=== PATIENT | male | born 1985 | race Caucasian/White ===

== ENCOUNTER → 2017-11-18 | Day surgery (SDC) | payer OTHER ==
[~2017-11-18] MED LIST: ADDERALL 10 MG10 MG PO; ALEVE220 MG PO; OXYCODONE-APAP1 EAC4 PO; PERCOCET PO; TRAMADOL 50 MG50 MG PO; [UNRECOGNIZED DRUG - REMARK]
--- NOTE | 2017-11-24 10:50 | OP ---
[address] [address] OPERATIVE REPORT Name: NEL ROCHA Room: [facility]#: [id number] Admission: 11/18/17 Attend Phys: Jayy Glover II Discharge: Date of : 81 Report #: [id number] THIS REPORT FOR: //name// CC: Jorge Glover DATE OF SERVICE: 11/18/2017 PREOPERATIVE DIAGNOSIS: Right shoulder SLAP tear. POSTOPERATIVE DIAGNOSES: 1. Right shoulder SLAP tear. 2. Subacromial impingement. PROCEDURE PERFORMED: 1. Right shoulder arthroscopic surgery with SLAP repair. 2. Subacromial decompression. SURGEON: Jayy Glover DO. BUILDING CERTIFIER: DUNCAN Casper. ANESTHESIA: Per operative record. ESTIMATED BLOOD LOSS: Minimal. ANTIBIOTICS: Per operative record. DRAINS: None. COMPLICATIONS: None. CONDITION: Stable to recovery room. DESCRIPTION OF PROCEDURE: The patient was taken to the operative suite, placed supine on the operating table and given appropriate anesthesia. The patient's affected shoulder was sterilely prepped and draped in modified beach chair position and all bony prominences were well padded. Surgery began by posterior portal incision. The arthroscope was advanced in the joint. There was found to be a superior labral tear noted to the anterior and superior margin of the glenoid, extending around to the posterior portion, establishing a anterior portal and cannula. From the superior region, the glenoid was roughened along its anterior and posterior margins. The labrum was then secured with lysing suture and then two anchors were then utilized along the superior margin in both the anterior and posterior portions to secure the labrum back down to the bone, this was probed and found to be intact. There was no fraying to the [address] [address] OPERATIVE REPORT Name: NEL ROCHA Room: [facility]#: [id number] Admission: 11/18/17 Attend Phys: Jayy Glover II Discharge: Date of : 81 Report #: [id number] tendon without tear. There was no significant bone across the ribs and glenohumeral joint. The arthroscope was advanced in the subacromial space, subacromial decompression with partial anterior acromioplasty was performed. The AC joint was intact. There was no evidence of rotator cuff tears. At this time, the arthroscope was removed from the shoulder, closed with 4-0 nylon in a simple fashion. Dermabond dressing was applied. The patient was transported to recovery in stable condition. Counts were correct throughout the procedure. <ELECTRONICALLY SIGNED> By: Jayy Glover II, DO 11/24/17 1050 [id number] Yuni Glover II, DO /nt
== END | disposition home or self-care (01) ==
LOC: M.SUR 08:59
DX: S43.431A Superior glenoid labrum lesion of right shoulder, initial encounter (principal); M75.41 Impingement syndrome of right shoulder; Z79.891 Long term (current) use of opiate analgesic; X58.XXXA Exposure to other specified factors, initial encounter; Y93.89 Activity, other specified; Y92.89 Other specified places as the place of occurrence of the external cause; Y99.8 Other external cause status

== ENCOUNTER → 2018-03-01 | Day surgery (SDC) | payer OTHER ==
--- NOTE | 2018-03-02 22:46 | OP ---
[address] [address] OPERATIVE REPORT Name: NEL ROCHA Room: [facility]#: [id number] Admission: 03/01/18 Attend Phys: Jayy Glover II Discharge: Date of : 81 Report #: [id number] THIS REPORT FOR: //name// CC: Jorge Glover DATE OF SERVICE: 03/01/2018 PREOPERATIVE DIAGNOSIS: Left shoulder SLAP tear. POSTOPERATIVE DIAGNOSES: 1. Left shoulder lateral clavicle osteoarthritis. 2. Subacromial impingement. 3. Biceps tendon and labrum tear. PROCEDURES PERFORMED: 1. Left shoulder arthroscopic surgery with lateral clavicle excision. 2. Subacromial decompression. SURGEON: Jayy Glover II, DO. SPIRITS MODEL: DUNCAN Casper. ANESTHESIA: Per operative record. ESTIMATED BLOOD LOSS: Minimal. ANTIBIOTICS: Per operative record. DRAINS: None. COMPLICATIONS: None. CONDITION: The patient stable to recovery room. DESCRIPTION OF PROCEDURE: The patient was taken to the operative suite, placed supine on the operating room table and given appropriate anesthesia. The patient's affected shoulder was sterilely prepped and draped in modified beach chair position and all bony prominences well padded. Surgery began with posterior portal incision. The arthroscope was advanced in the joint. There was shown to be a tear of the biceps tendon and the anterior labrum from its glenoid attachment. This was no longer in the shoulder, had been pulled through the bicipital groove and down into the mid upper arm. The labrum was torn throughout the anterior and superior part of the glenoid and this was shaver throughout the superior and inferior portions of the glenoid to remove the labral tears. The undersurface of the rotator cuff did have some minor [address] [address] OPERATIVE REPORT Name: NEL ROCHA Room: [facility]#: [id number] Admission: 03/01/18 Attend Phys: Jayy Glover II Discharge: Date of : 81 Report #: [id number] fraying, however, no significant tears and was debrided utilizing a shaver. The arthroscope was then advanced to the subacromial space. There was some significant subacromial impingement, which was debrided utilizing a shaver to subacromial region. Debridement of excess bursa and partial acromioplasty was performed. There was also significant lateral clavicle arthritis at the AC joint, which was debrided utilizing a shaver to the distal center of the clavicle, which was resected. This had shown to have fraying to the rotator cuff on the superior margin as well, without evidence of significant tear. Irrigation was then performed of the shoulder. It was then drained of arthroscopic fluid and closed with 4-0 nylon in simple fashion. Dermabond and a sling were applied. The patient transported to the recovery room in stable condition. Counts were correct throughout the procedure. <ELECTRONICALLY SIGNED> By: Jayy Glover II, DO 03/02/18 [id number] Glover II, DO /nt
== END | disposition home or self-care (01) ==
LOC: M.SUR 07:13
DX: M19.012 Primary osteoarthritis, left shoulder (principal); M75.42 Impingement syndrome of left shoulder; S46.212A Strain of muscle, fascia and tendon of other parts of biceps, left arm, initial encounter; S43.402A Unspecified sprain of left shoulder joint, initial encounter; F17.210 Nicotine dependence, cigarettes, uncomplicated; X58.XXXA Exposure to other specified factors, initial encounter; Y93.89 Activity, other specified; Y92.89 Other specified places as the place of occurrence of the external cause; Y99.8 Other external cause status; Z98.0 Intestinal bypass and anastomosis status; Z98.890 Other specified postprocedural states